=== PATIENT | female | born 1995 | race Caucasian/White ===

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

== ENCOUNTER → 2017-05-25 | Outpatient (CLI) | payer BC ==
[2017-05-25 13:32] LABS: LYME DISEASE AB IGG NEG (NEG)
[2017-05-25 13:56] LABS: LYME DISEASE AB IGM POS (NEG)
[2017-05-28 08:41] LABS: 18KDIGG BAND NONREACTIVE (NONREACTIVE); 23KDIGG BAND NONREACTIVE (NONREACTIVE); 23KDIGM BAND REACTIVE (NONREACTIVE); 28KDIGG BAND NONREACTIVE (NONREACTIVE); 30KDIGG BAND NONREACTIVE (NONREACTIVE); 39KDIGG BAND NONREACTIVE (NONREACTIVE); 39KDIGM BAND NONREACTIVE (NONREACTIVE); 41KDIGG BAND NONREACTIVE (NONREACTIVE); 41KDIGM BAND NONREACTIVE (NONREACTIVE); 45KDIGG BAND NONREACTIVE (NONREACTIVE); 58KDIGG BAND NONREACTIVE (NONREACTIVE); 66KDIGG BAND NONREACTIVE (NONREACTIVE); 93KDIGG BAND NONREACTIVE (NONREACTIVE)
== END ==
LOC: C.LAB 10:44
PROVIDERS: ATTEND Nurse Practitioner Adult Health
DX: R25.1 Tremor, unspecified (principal)

== ENCOUNTER → 2017-06-04 | Outpatient (CLI) | payer BC ==
[2017-06-04 11:18] LABS: HEMATOCRIT 38.5 % (37-47)
[2017-06-04 11:57] LABS: ALKALINE PHOSPHATASE 70 U/L (45-117); ALT/SGPT 13 U/L (12-78); BLOOD UREA NITROGEN 11 mg/dl (7-18); BUN/CREATININE RATIO 14.8 (10-20); CALCIUM 9.4 mg/dl (8.5-10.1); CARBON DIOXIDE 26 mmol/L (21-32); CHLORIDE 105 mmol/L (98-107); CREATININE 0.75 mg/dl (0.60-1.20); GLUCOSE 74 mg/dl (70-99); POTASSIUM 3.9 mmol/L (3.5-5.1); SODIUM 137 mmol/L (136-145)
[2017-06-04 11:59] LABS: ALB/GLOB RATIO 0.9 (0.9-2); AST/SGOT 14 U/L (15-37)
== END | disposition home or self-care (01) ==
LOC: C.LAB 10:31
PROVIDERS: ATTEND Family Medicine
DX: M62.89 Other specified disorders of muscle (principal); G47.00 Insomnia, unspecified; T14.8XXA Other injury of unspecified body region, initial encounter; W57.XXXA Bitten or stung by nonvenomous insect and other nonvenomous arthropods, initial encounter

== ENCOUNTER 2025-07-04 15:38 | Inpatient (IN) ==
[2025-07-04] MEDS ORDERED: OXYTOCIN 30 UNITS/NSS 30 UNITS/500 ML BAG IV PRN (16:40)
[2025-07-04] MEDS ORDERED: LIDOCAINE 1% LOCAL 20 ML VIAL INFIL PRN (16:40)
[2025-07-04] MEDS ORDERED: CALCIUM CARBONATE 500 MG CHEWABLE TAB PO PRN (16:40)
--- NOTE | 2025-07-04 16:50 | History & Physical Report ---
Date of Service July 04, 2025 Assessment & Plan (1) Decreased movement: Plan: 30-year-old at 39 weeks and 2 days of gestation presenting today with decreased movements, reactive NST normal MAISHA but BPP of 6 out of 10 in the office, missing movements and tone, Vital signs stable afebrile, Currently NST is reactive and scalp suggest increased acceleration but patient has not felt movement, Suspected macrosomia, ultrasound for EFW was over 90th percentile and office, discussed the risk of macrosomia, shoulder dystocia and ACOG recommendations for trial of vaginal versus primary , Plan to admit, monitor, labs, repeat ultrasound for BPP and EFW and then decide further plan for delivery, Continue monitor closely, All questions were answered. (2) with 39 completed weeks gestation: (3) Anxiety: (4) Depression: (5) LGA (large for gestational age) fetus affecting mother, antepartum: History of Present Illness Primary Care Provider: Sunshine Higgins DO patient is an 30-year-old G1, P0 at 35 weeks and 2 days of gestation who was sent from office due to decreased movements, reactive NST but low BPP 6 out of 10. Patient called office around noon time that baby has not know much maybe few times during the day. She went to office for NST and baby moved maybe 2 times during monitoring but none during ultrasound which was done for BPP. Patient states baby started to move a little bit since she left the office maybe 4 times for the last 2 hours or so. She denies contractions, leakage of fluid or vaginal bleeding. her has been complicated by, , 1. Rh-, Received RhoGAM at 28 weeks, 2. Depression anxiety during , on Abilify and lamotrigine, sees psychiatrist and has been stable. 3. LGA, EFW was 96 percentile at 34 weeks, repeat ultrasound last week with EFW: 3941 g +/- 583 g (8 lb 11 oz +/- 21 oz), corresponding to 94%. Allergies Allergy/AdvReac Type Severity Reaction Status Date / Time coconut Allergy Unknown ITCHING Verified 11/27/24 18:06 Home Medications Medication Instructions Recorded Confirmed Type aripiprazole 10 mg tablet (Abilify) 10 mg PO HS 07/04/25 07/04/25 History lamotrigine 100 mg tablet 100 mg PO DAILY 07/04/25 07/04/25 History (Lamictal) [id number] 1 mg 1 tab PO DAILY 07/04/25 07/04/25 History tablet Patient History Medical History Depression Anxiety Migraine headache Daytime hypersomnolence Acne Acid reflux disease Surgical History S/P wisdom tooth extraction Family History Denies family history of Ovarian cancer Prostate cancer Myocardial infarction Breast cancer Colorectal cancer Social History Smoking Status: Never smoker Do You Dip or Chew Tobacco: No; Hx Alcohol Use: Yes Alcohol type: hard liquor Hx Substance Use: No Preferred Language: Citizen Of The [place] Communication Ability: Effective Visual Impairment: No Limitations Hearing Ability: Normal marital status: Current Living Situation: Parent current occupational status: employed current occupation: [employer] Feels Safe at Home: Yes Safety Concerns: Feels Safe At This Time Childhood Exposure to Second-Hand Smoke: No Dental Care, Regularly: No Physical Activity Frequency: Does not Exercise Seatbelt Use: always Sunscreen Use: Yes 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 no history of STDs, no history of chlamydia, gonorrhea, herpes Physical Exam Constitutional: WD/WN, vitals as above well developed, well nourished and comfortable Gastrointestinal (Abdomen): normal bowel sounds, soft, nontender, no hepatosplenomegaly ( gravid, Lan 9 to 9.5 pounds) Genitourinary: normal external appearance OB Exam Abdomen: + vertex Manual OB Exam: + cervical dilation 1 cm, + cervical effacement 50% and + station -2 OB Exam Monitor Tracing: + external uterine monitor used and + category I NST is reactive, scalp stimulation caused acceleration, patient has not felt movements during that. Results & Data Vital Signs (Past 12 Hours) Vital Signs Temp Pulse Resp BP 07/04/25 15:54 37.0 C 16 07/04/25 15:48 117 H 137/92 (1) Decreased movement Fetus number: single or unspecified fetus Trimester: third trimester Qualified Code(s): O36.8130 - Decreased movements, third trimester, not applicable or unspecified (4) Depression Depression Type: other depression Qualified Code(s): F32.89 - Other specified depressive episodes (5) LGA (large for gestational age) fetus affecting mother, antepartum Fetus number: single or unspecified fetus Qualified Code(s): O36.60X0 - Maternal care for excessive growth, unspecified trimester, not applicable or unspecified
[2025-07-04 18:00] LABS: Protein Creatinine Ratio Urine 0.4 (0-0.2); Total Protein Urine Random 62.6 mg/dl (0-11.9)
--- NOTE | 2025-07-04 18:00 | Ultrasound Report ---
Technique: Transabdominal pelvic sonography was performed Findings: A single live intrauterine gestation is seen in cephalic presentation. The placenta is anterior. There is no sign of placenta previa or placental abruption. Amniotic fluid is within normal limits with an MAISHA of 6.6. The heart rate was 171 bpm The biophysical profile score is normal at 8 out of 8. Impression: Intrauterine with a normal biophysical profile score Electronically signed by Hipolito Sanchez 07-04-2025 5:59 PM
--- NOTE | 2025-07-04 18:30 | Ultrasound Report ---
INDICATION: Gross COMPARISON: None TECHNIQUE: Limited Ob ultrasound was performed. FINDINGS: Single viable intrauterine . Estimated gestational age is 39 weeks and 2 days. Cephalic presentation. heart rate 142 bpm. EFW 8 pounds 13 ounces +/- 1 pound 5 ounces. Please refer to the worksheet for additional measurements. IMPRESSION: Single viable intrauterine with estimated gestational age of 39 weeks and 2 days. Electronically signed by Margo Anne 07-04-2025 6:29 PM
[2025-07-04] MEDS: DINOPROSTONE 10 MG INSERT PV ONE (18:37)
[2025-07-04] MEDS ORDERED: BUTORPHANOL TARTRATE 1 MG/ML VIAL IV PRN (18:46)
--- NOTE | 2025-07-04 18:46 | Obstetrical Progress Note ---
Date of Service July 04, 2025 Assessment & Plan Admission and Anticipated Discharge Date Admission Date: July 04, 2025 Subjective Patient is back from ultrasound. She has been feeling the movements. BPP is 8 out of 8 making it 10 out of 10 with a reactive NST here. Ultrasound showed single IUP vertex presentation, MAISHA within normal limits, EFW is 3996 g which is 8 pound 13 ounces. Discussed the findings and a cog recommendations of trial of labor if EFW ultrasound is less than 5000 g without diabetes and less than 4500 g with gestational diabetes. Patient understands all and desires to have a trial of labor. Discussed induction of labor, Ripening of cervix with prostaglandin, pain management during labor and what to expect. patient plans to get epidural later. Patient understands all. Cervidil is placed in vagina without difficulty. Continue to monitor closely. Results & Data Vital Signs (Past 12 Hours) Vital Signs Temp Pulse Resp BP 07/04/25 18:38 96 H 135/83 07/04/25 15:54 37.0 C 16 07/04/25 15:48 117 H 137/92
[2025-07-04 19:03] LABS: Hematocrit (blood only) 33.3 % (37.0-47.0); Hemoglobin 12.0 g/dL (12.0-16.0); Mean Corpuscular Hemoglobin 31.7 pg (25.0-34.0); Mean Corpuscular Volume 88.1 fL (80.0-100.0); Platelet Count 166 K/uL (130-400); RDW Standard Deviation 43.0 fL (36.4-46.3); Red Blood Count 3.78 M/uL (4.20-5.40); White Blood Count 9.84 K/ul (4.8-10.8)
[2025-07-04 19:21] LABS: Alanine Aminotransferase 8.0 U/L (7-52); Albumin Globulin Ratio 1.1 (0.9-2); Albumin Level 3.3 gm/dl (3.4-5.0); Alkaline Phosphatase 161.0 U/L (34-104); Anion Gap 9.0 (3-11); Bilirubin,Total 0.3 mg/dl (0.2-1.0); Blood Urea Nitrogen 14.0 mg/dl (6-23); Calcium 9.0 mg/dl (8.6-10.3); Carbon Dioxide 19.0 mmol/L (21-32); Chloride 108.0 mmol/L (98-107); Creatinine Clr Calc Pharmacy 146.3 ml/min; Globulin 3.1 gm/dl (2.5-4.0); Glucose 98.0 mg/dl (70-99(Fasting)); Potassium 4.2 mmol/L (3.5-5.1); Sodium 136.0 mmol/L (136-145); Total Protein 6.4 gm/dl (6.0-8.3)
[2025-07-05] MEDS: lamoTRIgine 100 MG TAB PO SCH (08:30)
[2025-07-05] MEDS: PRENATAL VITAMIN 1 TAB PO SCH (08:30)
[2025-07-05] MEDS: LACTATED RINGER'S 1,000 ML IV PRN (09:46)
--- NOTE | 2025-07-05 09:54 | Labor Progress Brief Note ---
Date of Service July 05, 2025 Assessment & Plan Admission and Anticipated Discharge Date Admission Date: July 04, 2025 Physical Exam Genitourinary: Manual OB Exam: + cervical dilation 2 cm, + cervical effacement 80% and + station high OB Exam Monitor Tracing: + external FHT monitor used, + external uterine monitor used, + category I and + normal FHT variability Cervix soft/anterior. Will start Oxytocin to augment contractions. EFW 9 lbs. Results & Data Vital Signs (Past 12 Hours) Vital Signs Temp Pulse Resp BP 07/05/25 07:08 16 07/05/25 07:08 36.7 C 16 07/05/25 07:05 91 H 123/66 07/05/25 02:22 36.8 C 87 16 120/57 L 07/05/25 00:02 36.7 C 89 18 129/71
[2025-07-05] MEDS: OXYTOCIN 30 UNITS/NSS 30 UNITS/500 ML BAG IV PRN (10:13)
[2025-07-05] MEDS ORDERED: NALBUPHINE HCL INJ 10 MG/ML AMP IV PRN ×2 (11:38→20:11)
[2025-07-05] MEDS ORDERED: ROPIVACAINE 0.5% PF 5 MG/ML 20 ML VIAL EPI PRN (11:38)
[2025-07-05] MEDS ORDERED: BUPIVACAINE 0.25% PF 30 ML VIAL EPI PRN (11:38)
[2025-07-05] MEDS ORDERED: fentANYL 2 MCG/ML BUPIVacaine 0.125%-NSS 100ML BAG EPI PRN (11:38)
[2025-07-05] MEDS ORDERED: LIDOCAINE 2% MPF LOCAL 5 ML VIAL EPI PRN (11:38)
[2025-07-05] MEDS ORDERED: NALOXONE HCL 1 MG in SODIUM CHLORIDE 0.9% 1,000 ML IV PRN ×2 (11:38→20:11)
[2025-07-05] MEDS ORDERED: SODIUM CHLORIDE 0.9% PF INJ 10 ML VIAL EPI PRN (11:38)
[2025-07-05] MEDS ORDERED: NALOXONE HCL 0.4 MG/1 ML VIAL/CARP IV PRN ×2 (11:38→20:11)
[2025-07-05] MEDS ORDERED: diphenhydrAMINE 50 MG/ML VIAL IV PRN ×2 (11:38→20:11)
[2025-07-05] MEDS ORDERED: ONDANSETRON INJ 2 MG/ML 2 ML VIAL IV PRN ×2 (11:38→20:11)
--- NOTE | 2025-07-05 11:38 | Anesthesiology Consultation ---
Date of Service July 05, 2025 Assessment & Plan (1) Encounter for pre-operative examination: Chart Review Chart Review: Patient NOT seen in Pre Admission Testing and Acceptable Risk for Labor Epidural Consults Requested none History Height/Weight Height: 5 ft 5 in Weight: 94.347 kg Allergies Allergy/AdvReac Type Severity Reaction Status Date / Time coconut Allergy Unknown ITCHING Verified 11/27/24 18:06 Medications Home Medications Medication Instructions Recorded Confirmed Last Taken aripiprazole 10 mg tablet (Abilify) 10 mg PO HS 07/04/25 07/04/25 1 Day Ago ~07/03/25 lamotrigine 100 mg tablet 100 mg PO DAILY 07/04/25 07/04/25 1 Day Ago (Lamictal) ~07/03/25 [id number]-[id number] 1 mg 1 tab PO DAILY 07/04/25 07/04/25 1 Day Ago tablet ~07/03/25 Active Medications Generic Name Dose Route Start Last Admin Trade Name Freq PRN Reason Stop Dose Admin Aripiprazole 10 mg 07/04/25 21:00 07/04/25 20:43 Aripiprazole 10 Mg Tab PO 08/03/25 20:59 10 mg HS HARIKA Administration Lactated Ringer's 1,000 mls @ 150 mls/hr 07/04/25 16:40 07/05/25 10:53 Lr IV 07/06/25 16:39 150 mls/hr .[id number] PRN Administration L&D Protocol Protocol Oxytocin 30 units in 500 mls @ 1 mls/hr 07/05/25 09:53 07/05/25 10:13 Pitocin 30 Units/Nss IV 07/07/25 09:52 0.06 units/hr .Q24H PRN 1 mls/hr Labor Induction/Augmentation Administration Protocol 0.06 UNITS/HR Lamotrigine 100 mg 07/05/25 09:00 07/05/25 08:30 Lamotrigine 100 Mg Tab PO 08/04/25 08:59 100 mg DAILY HARIKA Administration Protocol Prenat Multivit/Azure/Iron/Folic Ac 1 tab 07/05/25 09:00 07/05/25 08:30 Vitamin 1 Tab PO 08/04/25 08:59 1 tab DAILY HARIKA Administration Past Medical History Medical History Depression Anxiety Migraine headache Daytime hypersomnolence Acne Acid reflux disease Past Family History Family History Denies family history of Ovarian cancer Prostate cancer Myocardial infarction Breast cancer Colorectal cancer Past Surgical History Surgical History S/P wisdom tooth extraction Social History Smoking Status: Never smoker Do You Dip or Chew Tobacco: No Hx Alcohol Use: Yes Alcohol type: hard liquor Hx Substance Use: No Physical Exam Vital Signs Last Vital Signs Temp 98.1 F 07/05/25 07:08 Pulse 92 H 07/05/25 11:36 Resp 16 07/05/25 07:08 BP 138/83 07/05/25 11:30 Pulse Ox 100 07/05/25 11:36 Testing Laboratory Results 07/04/25 18:42 07/04/25 18:42 Blood Type O Negative 07/04/25 18:42 Antibody Screen NEGATIVE 07/04/25 18:42
[2025-07-05] MEDS: fentANYL 2 MCG/ML BUPIVacaine 0.125%-NSS 100ML BAG ONE (11:57)
[2025-07-05] MEDS: LIDOCAINE 2%/EPINEPHRINE 1:200,000 20 ML PF ONE (12:02)
[2025-07-05] MEDS: BUPIVACAINE 0.25% PF 30 ML VIAL ONE (12:03)
--- NOTE | 2025-07-05 13:44 | Labor Progress Brief Note ---
Date of Service July 05, 2025 Assessment & Plan Admission and Anticipated Discharge Date Admission Date: July 04, 2025 Physical Exam Genitourinary: Manual OB Exam: + cervical dilation 4 cm, + cervical effacement 80%, + station -2 and + amniotic fluid clear OB Exam Monitor Tracing: + external FHT monitor used, + external uterine monitor used, + category I and + normal FHT variability AROM with Amni-hook clear fluid. Results & Data Vital Signs (Past 12 Hours) Vital Signs Temp Pulse Resp BP Pulse Ox 07/05/25 13:36 88 100 07/05/25 13:31 96 H 90 07/05/25 13:29 89 113/73 07/05/25 13:26 81 99 07/05/25 13:24 85 123/78 07/05/25 13:21 88 98 07/05/25 13:18 82 128/84 07/05/25 13:16 88 99 07/05/25 13:13 90 128/80 07/05/25 13:11 87 99 07/05/25 13:08 85 127/81 07/05/25 13:06 90 98 07/05/25 13:04 97 H 131/83 07/05/25 13:01 92 H 98 07/05/25 13:00 93 H 121/81 07/05/25 12:56 89 99 07/05/25 12:55 90 130/81 07/05/25 12:51 90 99 07/05/25 12:48 89 125/83 07/05/25 12:46 84 98 07/05/25 12:44 86 128/82 07/05/25 12:41 83 99 07/05/25 12:39 95 H 123/83 07/05/25 12:36 91 H 98 07/05/25 12:34 96 H 07/05/25 12:34 91 H 124/81 94 07/05/25 12:31 93 H 99 07/05/25 12:30 16 07/05/25 12:30 16 07/05/25 12:29 91 H 128/77 07/05/25 12:26 92 H 100 07/05/25 12:24 100 H 157/93 H 93 07/05/25 12:21 95 H 99 07/05/25 12:19 86 122/79 07/05/25 12:16 98 H 99 07/05/25 12:15 16 07/05/25 12:15 16 07/05/25 12:13 94 H 126/82 07/05/25 12:11 86 123/79 99 07/05/25 12:09 93 H 122/71 07/05/25 12:07 96 H 119/70 07/05/25 12:06 96 H 99 07/05/25 12:05 95 H 114/68 07/05/25 12:02 85 124/64 07/05/25 12:01 93 H 97 07/05/25 12:00 16 07/05/25 12:00 36.9 C 16 07/05/25 11:56 87 100 07/05/25 11:51 84 100 07/05/25 11:46 94 H 100 07/05/25 11:42 90 93 07/05/25 11:41 96 H 100 07/05/25 11:36 92 H 100 07/05/25 11:31 88 100 07/05/25 11:30 90 138/83 07/05/25 11:26 90 100 07/05/25 10:30 90 141/89 H 07/05/25 07:08 16 07/05/25 07:08 36.7 C 16 07/05/25 07:05 91 H 123/66 07/05/25 02:22 36.8 C 87 16 120/57 L
[2025-07-05] MEDS: SODIUM CHLORIDE 0.9% PF INJ 10 ML VIAL ONE (14:15)
[2025-07-05] MEDS: BUPIVACAINE 0.25% PF 30 ML VIAL EPI STA (14:15)
[2025-07-05] MEDS: SODIUM CHLORIDE 0.9% PF INJ 10 ML VIAL EPI STA (14:16)
[2025-07-05] MEDS: LIDOCAINE 2%/EPINEPHRINE 1:200,000 20 ML PF EPI STA (14:16)
[2025-07-05] MEDS: ACETAMINOPHEN 500 MG TAB PO PRN (15:24)
--- NOTE | 2025-07-05 16:25 | Labor Progress Brief Note ---
Date of Service July 05, 2025 Subjective Reason For Note: Requested By RN called to put in calp lead and IUPC to better monitor FHT/ctx Assessment & Plan Admission and Anticipated Discharge Date Admission Date: July 04, 2025 Physical Exam Genitourinary: Manual OB Exam: + cervical dilation 4 cm, + cervical effacement 80%, + station -2 and + amniotic fluid clear OB Exam Monitor Tracing: + scalp electrode used, + intra-uterine pressure catheter used, + category I and + normal FHT variability scalp lead applied followed by insertion of IUPC without any complications Results & Data Vital Signs (Past 12 Hours) Vital Signs Temp Pulse Resp BP Pulse Ox O2 Del Method 07/05/25 16:21 93 H 100 07/05/25 16:19 102 H 87 L 07/05/25 16:16 95 H 100 07/05/25 16:12 90 91 07/05/25 16:10 84 100 07/05/25 16:06 93 H 100 07/05/25 16:04 87 113/66 07/05/25 16:02 92 H 92 07/05/25 16:01 91 H 98 07/05/25 16:00 16 07/05/25 16:00 16 07/05/25 15:56 94 H 100 07/05/25 15:54 108 H 94 07/05/25 15:51 103 H 100 07/05/25 15:49 100 H 115/71 07/05/25 15:46 98 H 100 07/05/25 15:41 98 H 100 07/05/25 15:36 100 H 99 07/05/25 15:34 99 H 114/75 07/05/25 15:31 102 H 100 07/05/25 15:30 18 07/05/25 15:30 18 07/05/25 15:26 108 H 91 07/05/25 15:25 105 H 81 L 07/05/25 15:21 93 H 100 07/05/25 15:19 96 H 133/71 07/05/25 15:16 91 H 98 07/05/25 15:14 92 H 91 07/05/25 15:10 78 100 07/05/25 15:06 81 100 07/05/25 15:04 74 138/94 07/05/25 15:01 84 100 07/05/25 14:59 Room Air 07/05/25 14:56 76 100 07/05/25 14:54 16 07/05/25 14:54 16 07/05/25 14:51 75 100 07/05/25 14:48 71 129/82 07/05/25 14:46 74 100 07/05/25 14:41 72 100 07/05/25 14:36 71 100 07/05/25 14:33 83 134/79 07/05/25 14:31 92 H 94 07/05/25 14:30 16 07/05/25 14:30 16 07/05/25 14:26 95 H 100 07/05/25 14:21 80 99 07/05/25 14:18 85 117/67 07/05/25 14:16 77 99 07/05/25 14:11 80 100 07/05/25 14:06 79 100 07/05/25 14:03 83 117/68 07/05/25 14:02 90 91 07/05/25 14:01 83 100 07/05/25 14:00 16 07/05/25 14:00 16 07/05/25 13:56 80 100 07/05/25 13:51 79 100 07/05/25 13:48 78 120/69 07/05/25 13:46 81 99 07/05/25 13:41 94 H 99 07/05/25 13:36 37.0 C 88 100 07/05/25 13:31 96 H 90 07/05/25 13:30 16 07/05/25 13:30 16 07/05/25 13:29 89 113/73 07/05/25 13:26 81 99 07/05/25 13:24 85 123/78 07/05/25 13:21 88 98 07/05/25 13:18 82 128/84 07/05/25 13:16 88 99 07/05/25 13:13 90 128/80 07/05/25 13:11 87 99 07/05/25 13:08 85 127/81 07/05/25 13:06 90 98 07/05/25 13:04 97 H 131/83 07/05/25 13:01 92 H 98 07/05/25 13:00 93 H 16 121/81 07/05/25 12:56 89 99 07/05/25 12:55 90 130/81 07/05/25 12:51 90 99 07/05/25 12:48 89 125/83 07/05/25 12:46 84 98 07/05/25 12:44 86 128/82 07/05/25 12:41 83 99 07/05/25 12:39 95 H 123/83 07/05/25 12:36 91 H 98 07/05/25 12:34 96 H 07/05/25 12:34 91 H 124/81 94 07/05/25 12:31 93 H 99 07/05/25 12:30 16 07/05/25 12:30 16 07/05/25 12:29 91 H 128/77 07/05/25 12:26 92 H 100 07/05/25 12:24 100 H 157/93 H 93 07/05/25 12:21 95 H 99 07/05/25 12:19 86 122/79 07/05/25 12:16 98 H 99 07/05/25 12:15 16 07/05/25 12:15 16 07/05/25 12:13 94 H 126/82 07/05/25 12:11 86 123/79 99 07/05/25 12:09 93 H 122/71 07/05/25 12:07 96 H 119/70 07/05/25 12:06 96 H 99 07/05/25 12:05 95 H 114/68 07/05/25 12:02 85 124/64 07/05/25 12:01 93 H 97 07/05/25 12:00 16 07/05/25 12:00 36.9 C 16 07/05/25 11:56 87 100 07/05/25 11:51 84 100 07/05/25 11:46 94 H 100 07/05/25 11:42 90 93 07/05/25 11:41 96 H 100 07/05/25 11:36 92 H 100 07/05/25 11:31 88 100 07/05/25 11:30 90 138/83 07/05/25 11:26 90 100 07/05/25 10:30 90 141/89 H 07/05/25 07:08 16 07/05/25 07:08 36.7 C 16 07/05/25 07:05 91 H 123/66
[2025-07-05] MEDS ORDERED: ONDANSETRON INJ 2 MG/ML 2 ML VIAL ONE (18:45)
--- NOTE | 2025-07-05 18:46 | History & Physical Bridge Note ---
Date of Service July 05, 2025 History & Physical Bridge Note I have examined the patient, reviewed the History & Physical and in the interval since the performance of the History & Physical I have noted the following changes of clinical significance: no changes noted
--- NOTE | 2025-07-05 18:51 | Labor Progress Brief Note ---
Date of Service July 05, 2025 Subjective Reason For Note: Routine Evaluation Assessment & Plan Admission and Anticipated Discharge Date Admission Date: July 04, 2025 Physical Exam Genitourinary: Manual OB Exam: + cervical dilation 4 cm, + cervical effacement 80%, + station -2 and + amniotic fluid meconium OB Exam Monitor Tracing: + scalp electrode used, + intra-uterine pressure catheter used, + category I and + normal FHT variability baby is wedged in pelvis and no change for over 5 hours. Macrosomia suspected with CPD and arrest of progress in labor Will proceed with primary . Consent signed. Discussion with patient and spouse regarding the risks and benefits detailed. Results & Data Vital Signs (Past 12 Hours) Vital Signs Temp Pulse Resp BP Pulse Ox O2 Del Method 07/05/25 18:43 94 H 90 07/05/25 18:41 101 H 99 07/05/25 18:36 86 99 07/05/25 18:34 89 138/91 07/05/25 18:31 94 H 100 07/05/25 18:26 75 99 07/05/25 18:21 79 99 07/05/25 18:18 75 133/86 07/05/25 18:15 76 99 07/05/25 18:11 77 98 07/05/25 18:09 90 93 07/05/25 18:06 84 100 07/05/25 18:04 82 134/88 07/05/25 18:01 87 99 07/05/25 18:00 16 07/05/25 18:00 16 07/05/25 17:56 86 98 07/05/25 17:51 86 100 07/05/25 17:48 84 138/75 07/05/25 17:46 87 100 07/05/25 17:41 88 100 07/05/25 17:40 86 143/73 H 07/05/25 17:36 84 100 07/05/25 17:35 90 144/100 H 07/05/25 17:31 36.9 C 84 100 07/05/25 17:26 86 100 07/05/25 17:21 76 100 07/05/25 17:19 81 139/88 07/05/25 17:16 79 100 07/05/25 17:11 76 100 07/05/25 17:06 76 100 07/05/25 17:04 82 126/80 07/05/25 17:01 79 100 07/05/25 17:00 16 07/05/25 17:00 16 07/05/25 16:56 76 100 07/05/25 16:51 74 100 07/05/25 16:49 75 133/81 07/05/25 16:46 82 100 07/05/25 16:41 83 100 07/05/25 16:36 75 100 07/05/25 16:34 79 131/79 07/05/25 16:33 81 91 07/05/25 16:31 77 100 07/05/25 16:26 97 H 96 07/05/25 16:21 93 H 100 07/05/25 16:19 102 H 87 L 07/05/25 16:16 95 H 100 07/05/25 16:12 90 91 07/05/25 16:10 84 100 07/05/25 16:06 93 H 100 07/05/25 16:04 87 113/66 07/05/25 16:02 92 H 92 07/05/25 16:01 91 H 98 07/05/25 16:00 16 07/05/25 16:00 16 07/05/25 15:56 94 H 100 07/05/25 15:54 108 H 94 07/05/25 15:51 103 H 100 07/05/25 15:49 100 H 115/71 07/05/25 15:46 98 H 100 07/05/25 15:41 98 H 100 07/05/25 15:36 100 H 99 07/05/25 15:34 99 H 114/75 07/05/25 15:31 36.8 C 102 H 100 07/05/25 15:30 18 07/05/25 15:30 18 07/05/25 15:26 108 H 91 07/05/25 15:25 105 H 81 L 07/05/25 15:21 93 H 100 07/05/25 15:19 96 H 133/71 07/05/25 15:16 91 H 98 07/05/25 15:14 92 H 91 07/05/25 15:10 78 100 07/05/25 15:06 81 100 07/05/25 15:04 74 138/94 07/05/25 15:01 84 100 07/05/25 14:59 Room Air 07/05/25 14:56 76 100 07/05/25 14:54 16 07/05/25 14:54 16 07/05/25 14:51 75 100 07/05/25 14:48 71 129/82 07/05/25 14:46 74 100 07/05/25 14:41 72 100 07/05/25 14:36 71 100 07/05/25 14:33 83 134/79 07/05/25 14:31 92 H 94 07/05/25 14:30 16 07/05/25 14:30 16 07/05/25 14:26 95 H 100 07/05/25 14:21 80 99 07/05/25 14:18 85 117/67 07/05/25 14:16 77 99 07/05/25 14:11 80 100 07/05/25 14:06 79 100 07/05/25 14:03 83 117/68 07/05/25 14:02 90 91 07/05/25 14:01 83 100 07/05/25 14:00 16 07/05/25 14:00 16 07/05/25 13:56 80 100 07/05/25 13:51 79 100 07/05/25 13:48 78 120/69 07/05/25 13:46 81 99 07/05/25 13:41 94 H 99 07/05/25 13:36 37.0 C 88 100 07/05/25 13:31 96 H 90 07/05/25 13:30 16 07/05/25 13:30 16 07/05/25 13:29 89 113/73 07/05/25 13:26 81 99 07/05/25 13:24 85 123/78 07/05/25 13:21 88 98 07/05/25 13:18 82 128/84 07/05/25 13:16 88 99 07/05/25 13:13 90 128/80 07/05/25 13:11 87 99 07/05/25 13:08 85 127/81 07/05/25 13:06 90 98 07/05/25 13:04 97 H 131/83 07/05/25 13:01 92 H 98 07/05/25 13:00 93 H 16 121/81 07/05/25 12:56 89 99 07/05/25 12:55 90 130/81 07/05/25 12:51 90 99 07/05/25 12:48 89 125/83 07/05/25 12:46 84 98 07/05/25 12:44 86 128/82 07/05/25 12:41 83 99 07/05/25 12:39 95 H 123/83 07/05/25 12:36 91 H 98 07/05/25 12:34 96 H 07/05/25 12:34 91 H 124/81 94 07/05/25 12:31 93 H 99 07/05/25 12:30 16 07/05/25 12:30 16 07/05/25 12:29 91 H 128/77 07/05/25 12:26 92 H 100 07/05/25 12:24 100 H 157/93 H 93 07/05/25 12:21 95 H 99 07/05/25 12:19 86 122/79 07/05/25 12:16 98 H 99 07/05/25 12:15 16 07/05/25 12:15 16 07/05/25 12:13 94 H 126/82 07/05/25 12:11 86 123/79 99 07/05/25 12:09 93 H 122/71 07/05/25 12:07 96 H 119/70 07/05/25 12:06 96 H 99 07/05/25 12:05 95 H 114/68 07/05/25 12:02 85 124/64 07/05/25 12:01 93 H 97 07/05/25 12:00 16 07/05/25 12:00 36.9 C 16 07/05/25 11:56 87 100 07/05/25 11:51 84 100 07/05/25 11:46 94 H 100 07/05/25 11:42 90 93 07/05/25 11:41 96 H 100 07/05/25 11:36 92 H 100 07/05/25 11:31 88 100 07/05/25 11:30 90 138/83 07/05/25 11:26 90 100 07/05/25 10:30 90 141/89 H 07/05/25 07:08 16 07/05/25 07:08 36.7 C 16 07/05/25 07:05 91 H 123/66
[2025-07-05] MEDS ORDERED: DEXAMETHASONE SOD INJ 4 MG/ML VIAL ONE (18:53)
[2025-07-05] MEDS ORDERED: OXYTOCIN 10 UNITS/ML VIAL ONE (18:53)
[2025-07-05] MEDS ORDERED: PHENYLEPHRINE HCL 25 MG/250 ML NSS IV ONE (18:54)
[2025-07-05] MEDS ORDERED: SODIUM BICARB 8.4% INJ 50 MEQ/50 ML SYR IV ONE (18:54)
[2025-07-05] MEDS ORDERED: LIDOCAINE 2%/EPINEPHRINE 1:200,000 20 ML PF ONE (18:54)
[2025-07-05] MEDS ORDERED: MoRPHine SULFATE PF 1 MG/ML 10 ML AMP/VIAL ONE (18:54)
[2025-07-05] MEDS: CITRIC ACID/SODIUM CITRATE 15 ML UDC PO SCH (19:27)
[2025-07-05] MEDS: AZITHROMYCIN 500 MG/255 ML BAG IV SCH (19:30)
[2025-07-05] MEDS ORDERED: PHENYLEPHRINE 100MCG/ML 5ML SYR ONE (19:43)
[2025-07-05] MEDS ORDERED: PROMETHAZINE HCL INJ 25 MG/ML 1 ML VIAL ONE (19:47)
[2025-07-05] MEDS ORDERED: SODIUM CHLORIDE 0.9% PF INJ 10 ML VIAL ONE (19:55)
[2025-07-05] MEDS ORDERED: METHYLERGONOVINE MALEATE 0.2 MG/ML AMP ONE (20:05)
[2025-07-05] MEDS ORDERED: LACTATED RINGER'S 500 ML IV PRN (20:11)
[2025-07-05] MEDS ORDERED: HYDROmorphone INJ 0.5 MG/0.5 ML SYR IV PRN (20:11)
[2025-07-05] MEDS ORDERED: NALOXONE HCL 0.08 MG in SYRINGE 1.8 ML IV PRN (20:11)
[2025-07-05] MEDS ORDERED: PROMETHAZINE 6.25 MG/50.25 ML BAG IV PRN (20:11)
[2025-07-05] MEDS ORDERED: NO NARCOTICS OR SEDATIVES SCH (20:15)
[2025-07-05] MEDS ORDERED: DC INTRASPINAL MORPHINE SCH (20:15)
[2025-07-05] MEDS ORDERED: SENNA 8.6 MG TAB PO PRN (20:50)
[2025-07-05] MEDS ORDERED: HYDROCORTISONE ACETATE 25 MG SUPP PR PRN (20:50)
[2025-07-05] MEDS ORDERED: MAGNESIUM HYDROXIDE SUSP 30 ML UDC PO PRN (20:50)
[2025-07-05] MEDS ORDERED: BENZOCAINE 20% SPRY 85 APPLN/85 GM CAN EXT PRN (20:50)
[2025-07-05] MEDS ORDERED: CALCIUM CARBONATE 500 MG CHEWABLE TAB PO PRN (20:50)
--- NOTE | 2025-07-05 20:52 | Anesthesia Procedure Note ---
Date of Service July 05, 2025 Anesthesia Post Epidural Note Vital Signs Vital Signs: Temp Pulse Resp BP Pulse Ox O2 Del Method 98.4 F 87 16 111/61 98 Room Air 07/05/25 17:31 07/05/25 20:48 07/05/25 18:00 07/05/25 20:46 07/05/25 20:48 07/05/25 14:59 Notes Mental Status: alert / awake / arousable and participated in evaluation Nausea / Vomiting: adequately controlled Pain: adequately controlled Airway Patency, RR, SpO2: stable & adequate BP & HR: stable & adequate Hydration State: stable & adequate Neuraxial Anesthesia: was administered and sensory block is resolving Anesthetic Complications: no major complications apparent and Pt Satisfied with anesthetic care Epidural: Removed without complications and With tip intact
--- NOTE | 2025-07-05 20:54 | Post Operative Brief Note ---
Immediate Post Op Note Date of Surgery July 05, 2025 Pre & Post Diagnosis Operation Date: 07/05/25 19:30 Pre-Op Diagnosis: Primary Section for Failure to Progress, CPD and Macrosomia Post-Op Diagnosis: Same I identified the patient and participated in the time-out.: Yes Procedure Operation Date: 07/05/25 19:30 Actual Procedures p Section in LD for LFC at 1957(Bilateral) - Vitaly Denis MD Surgeon Vitaly Denis MD [employer] [address] [place] Estimated Blood Loss 718 Findings Consistent with Post-Op Diagnosis live female OT with Apgars 9/9 weight 8-14 Fluids LR Specimens placenta Drains [place] Catheter Anesthesia Type Labor Epidural Complications none Disposition Accompanied Patient To Recovery: Yes Overlapping Procedure I was present for: the critical portions of procedure. I was immediately available: during the entire case. Back up surgeon: used during listed procedure.
--- NOTE | 2025-07-05 20:56 | Anesthesiology Progress Note ---
Date of Service July 05, 2025 Anesthesia Post Procedure Vital Signs Vital Signs: Temp Pulse Resp BP Pulse Ox O2 Del Method 07/05/25 20:54 77 94 07/05/25 20:53 77 94 07/05/25 20:48 87 98 07/05/25 20:46 96 H 111/61 07/05/25 20:43 76 97 07/05/25 19:25 90 97 07/05/25 19:21 89 98 07/05/25 19:19 94 H 134/84 07/05/25 19:15 93 H 97 07/05/25 19:11 95 H 97 07/05/25 19:06 100 H 96 07/05/25 19:03 96 H 131/89 07/05/25 19:01 100 H 99 07/05/25 18:56 96 H 98 07/05/25 18:51 100 H 98 07/05/25 18:48 93 H 137/91 07/05/25 18:46 94 H 100 07/05/25 18:43 94 H 90 07/05/25 18:41 101 H 99 07/05/25 18:36 86 99 07/05/25 18:34 89 138/91 07/05/25 18:31 94 H 100 07/05/25 18:26 75 99 07/05/25 18:21 79 99 07/05/25 18:18 75 133/86 07/05/25 18:15 76 99 07/05/25 18:11 77 98 07/05/25 18:09 90 93 07/05/25 18:06 84 100 07/05/25 18:04 82 134/88 07/05/25 18:01 87 99 07/05/25 18:00 16 07/05/25 18:00 16 07/05/25 17:56 86 98 07/05/25 17:51 86 100 07/05/25 17:48 84 138/75 07/05/25 17:46 87 100 07/05/25 17:41 88 100 07/05/25 17:40 86 143/73 H 07/05/25 17:36 84 100 07/05/25 17:35 90 144/100 H 07/05/25 17:31 98.4 F 84 100 07/05/25 17:26 86 100 07/05/25 17:21 76 100 07/05/25 17:19 81 139/88 07/05/25 17:16 79 100 07/05/25 17:11 76 100 07/05/25 17:06 76 100 07/05/25 17:04 82 126/80 07/05/25 17:01 79 100 07/05/25 17:00 16 07/05/25 17:00 16 07/05/25 16:56 76 100 07/05/25 16:51 74 100 07/05/25 16:49 75 133/81 07/05/25 16:46 82 100 07/05/25 16:41 83 100 07/05/25 16:36 75 100 07/05/25 16:34 79 131/79 07/05/25 16:33 81 91 07/05/25 16:31 77 100 07/05/25 16:26 97 H 96 07/05/25 16:21 93 H 100 07/05/25 16:19 102 H 87 L 07/05/25 16:16 95 H 100 07/05/25 16:12 90 91 07/05/25 16:10 84 100 07/05/25 16:06 93 H 100 07/05/25 16:04 87 113/66 07/05/25 16:02 92 H 92 07/05/25 16:01 91 H 98 07/05/25 16:00 16 07/05/25 16:00 16 07/05/25 15:56 94 H 100 07/05/25 15:54 108 H 94 07/05/25 15:51 103 H 100 07/05/25 15:49 100 H 115/71 07/05/25 15:46 98 H 100 07/05/25 15:41 98 H 100 07/05/25 15:36 100 H 99 07/05/25 15:34 99 H 114/75 07/05/25 15:31 98.2 F 102 H 100 07/05/25 15:30 18 07/05/25 15:30 18 07/05/25 15:26 108 H 91 07/05/25 15:25 105 H 81 L 07/05/25 15:21 93 H 100 07/05/25 15:19 96 H 133/71 07/05/25 15:16 91 H 98 07/05/25 15:14 92 H 91 07/05/25 15:10 78 100 07/05/25 15:06 81 100 07/05/25 15:04 74 138/94 07/05/25 15:01 84 100 07/05/25 14:59 Room Air 07/05/25 14:56 76 100 07/05/25 14:54 16 07/05/25 14:54 16 07/05/25 14:51 75 100 07/05/25 14:48 71 129/82 07/05/25 14:46 74 100 07/05/25 14:41 72 100 07/05/25 14:36 71 100 07/05/25 14:33 83 134/79 07/05/25 14:31 92 H 94 07/05/25 14:30 16 07/05/25 14:30 16 07/05/25 14:26 95 H 100 07/05/25 14:21 80 99 07/05/25 14:18 85 117/67 07/05/25 14:16 77 99 07/05/25 14:11 80 100 07/05/25 14:06 79 100 07/05/25 14:03 83 117/68 07/05/25 14:02 90 91 07/05/25 14:01 83 100 07/05/25 14:00 16 07/05/25 14:00 16 07/05/25 13:56 80 100 07/05/25 13:51 79 100 07/05/25 13:48 78 120/69 07/05/25 13:46 81 99 07/05/25 13:41 94 H 99 07/05/25 13:36 98.6 F 88 100 07/05/25 13:31 96 H 90 07/05/25 13:30 16 07/05/25 13:30 16 07/05/25 13:29 89 113/73 07/05/25 13:26 81 99 07/05/25 13:24 85 123/78 07/05/25 13:21 88 98 07/05/25 13:18 82 128/84 07/05/25 13:16 88 99 07/05/25 13:13 90 128/80 07/05/25 13:11 87 99 07/05/25 13:08 85 127/81 07/05/25 13:06 90 98 07/05/25 13:04 97 H 131/83 07/05/25 13:01 92 H 98 07/05/25 13:00 93 H 16 121/81 07/05/25 12:56 89 99 07/05/25 12:55 90 130/81 07/05/25 12:51 90 99 07/05/25 12:48 89 125/83 07/05/25 12:46 84 98 07/05/25 12:44 86 128/82 07/05/25 12:41 83 99 07/05/25 12:39 95 H 123/83 07/05/25 12:36 91 H 98 07/05/25 12:34 96 H 07/05/25 12:34 91 H 124/81 94 07/05/25 12:31 93 H 99 07/05/25 12:30 16 07/05/25 12:30 16 07/05/25 12:29 91 H 128/77 07/05/25 12:26 92 H 100 07/05/25 12:24 100 H 157/93 H 93 07/05/25 12:21 95 H 99 07/05/25 12:19 86 122/79 07/05/25 12:16 98 H 99 07/05/25 12:15 16 07/05/25 12:15 16 07/05/25 12:13 94 H 126/82 07/05/25 12:11 86 123/79 99 07/05/25 12:09 93 H 122/71 07/05/25 12:07 96 H 119/70 07/05/25 12:06 96 H 99 07/05/25 12:05 95 H 114/68 07/05/25 12:02 85 124/64 07/05/25 12:01 93 H 97 07/05/25 12:00 16 07/05/25 12:00 98.4 F 16 07/05/25 11:56 87 100 07/05/25 11:51 84 100 07/05/25 11:46 94 H 100 07/05/25 11:42 90 93 07/05/25 11:41 96 H 100 07/05/25 11:36 92 H 100 07/05/25 11:31 88 100 07/05/25 11:30 90 138/83 07/05/25 11:26 90 100 07/05/25 10:30 90 141/89 H 07/05/25 07:08 16 07/05/25 07:08 98.1 F 16 07/05/25 07:05 91 H 123/66 07/05/25 02:22 98.2 F 87 16 120/57 L 07/05/25 00:02 98.1 F 89 18 129/71 Transfer of Care Handoff Completed per policy Notes Mental Status: alert / awake / arousable and participated in evaluation Patient Amnestic to Procedure: No Nausea / Vomiting: improving with treatment Pain: adequately controlled Airway Patency, RR, SpO2: stable & adequate BP & HR: stable & adequate Hydration State: stable & adequate Neuraxial Anesthesia: was administered and sensory block is resolving Anesthetic Complications: no major complications apparent and Pt Satisfied with anesthetic care
--- NOTE | 2025-07-05 21:00 | Operative Report ---
Post Operative Report Pre & Post Diagnosis Operation Date: 07/05/25 19:30 Pre-Op Diagnosis: Primary Section for Failure to Progress, CPD and Macrosomia Post-Op Diagnosis: Same I identified the patient and participated in the time-out.: Yes Procedure Operation Date: 07/05/25 19:30 Actual Procedures p Section in for [facility] at 195(Bilateral) - Vitaly Denis MD Surgeon Vitaly Denis MD [employer] Dr. Mills Quantitative Blood Loss (QBL) 718 ml. Findings Consistent with Post-Op Diagnosis White female occiput transverse Apgars 9 and 9 weight 8 pounds 14 ounces Fluids LR Specimens Placenta Drains None Anesthesia Type Labor Epidural Complications None Disposition Accompanied Patient To Recovery: Yes Indications Aggressive progress in labor CPD suspected macrosomia Description of Procedure Under satisfactory epidural anesthesia the patient was prepped draped usual sterile fashion a timeout was called prior to the start of the procedure antibiotics were given preop. Low Pfannenstiel incision was used carrying the incision down through the layers of the abdomen in successive layers without difficulty upon entering into the abdominal cavity the peritoneum was opened in the AP diameter bladder blade was entered the bladder flap was made with sharp dissection using Metzenbaum scissors low segment transverse incision over the lower uterine segment was made. Incision was nicked the baby was found to be in the occiput transverse position was delivered with the aid of fundal pressure of a live female with Apgars of 9 and 9 weight was 8 pounds 14 ounces. Delayed cord clamping was accomplished Cord blood was then obtained placenta was then delivered spontaneously and intact submitted to pathology. The uterus was then exteriorized wet lap was used to hold the uterus in place dry lap was then used to clean all clots and debris from the uterus. Ring forceps were then placed on the inferior margin in both angles. There was some atony and 0.2 IM Methergine was given. The uterus was closed in a double layer closure starting with 0 Vicryl suture in a continuous interlocking fashion followed by a second retaining suture of 0 Vicryl suture. Tubes ovaries bilaterally were found to be within normal limits. The lower uterine segment was inspected the initial sponge needle instrument count were found to be correct. The uterus was placed back into the normal anatomical position. The muscle was reapproximated with several interrupted [id number] 0 Vicryl sutures the fascia was then reapproximated with 0 Vicryl suture in a continuous fashion. The subcuticular layer was then closed with 3-0 plain suture and the skin was then closed with 4- 0 Monocryl subcuticular stitch. Telfa and ABD dressing and Steri-Strips were used for the incision. The final sponge needle instrument count were found to be correct the QBL was 718 mL the patient was then placed supine on a stretcher and she was stable and taken to recovery room in satisfactory condition I attest to the content of the Intraoperative Record and any orders documented therein. Any exceptions are noted below. Please note that Dr. Mills was present for the surgical case he provided exposure retraction help with delivery of the head with fundal pressure closure of the uterus and closure of the abdomen
[2025-07-05] MEDS: ACETAMINOPHEN 500 MG TAB PO SCH (21:13)
[2025-07-05] MEDS: DIPHTHER/TETAN/PERTUS Vaccine (Tdap, Adol/Adult) 0.5mL IM ONE (21:14)
[2025-07-05] MEDS ORDERED: Nursing to Pharmacy Communication SCH (21:30)
[2025-07-05] MEDS: ACETAMINOPHEN 325 MG TAB PO SCH (21:35)
[2025-07-05] MEDS: KETOROLAC 30 MG/ML VIAL IV SCH (21:36)
[2025-07-05] MEDS: OXYTOCIN 20 UNITS/LR 1,002 ML IV SCH (22:26)
[2025-07-05] MEDS: DOCUSATE SODIUM 100 MG CAP PO SCH (22:42)
[2025-07-06] MEDS ORDERED: ACETAMINOPHEN 325 MG TAB PO SCH (03:00)
[2025-07-06] MEDS: SIMETHICONE 80 MG CHEW PO SCH (03:32)
[2025-07-06 07:56] LABS: Hematocrit (blood only) 27.4 % (37.0-47.0); Hemoglobin 9.8 g/dL (12.0-16.0); Immature Granulocytes # (auto) 0.06 K/uL (0.01-0.20); Immature Granulocytes % (auto) 0.4 %; Mean Corpuscular Hemoglobin 31.3 pg (25.0-34.0); Mean Corpuscular Volume 87.5 fL (80.0-100.0); Platelet Count 135 K/uL (130-400); RDW Standard Deviation 42.4 fL (36.4-46.3); Red Blood Count 3.13 M/uL (4.20-5.40); White Blood Count 15.34 K/ul (4.8-10.8)
[2025-07-06] MEDS: FERROUS SULFATE 325 MG TAB PO SCH (08:32)
[2025-07-06] MEDS: PRENATAL VITAMIN 1 TAB PO SCH (08:32)
--- NOTE | 2025-07-06 08:56 | Obstetrical Progress Note ---
Date of Service July 06, 2025 Assessment & Plan Admission and Anticipated Discharge Date Admission Date: July 04, 2025 Subjective Patient is seen and examined. She feels well, no complaints. Pain is under control with oral meds. Has not Voided yet Tolerating regular diet with out N&V Flatus Neg Bleeding is minimal No fever/ chills/ CP/ SOB/ N&V/ Leg pain Breast feeding without problems Vital Signs Height Weight Body Mass Index Blood Pressure Blood Pressure Position Temperature Temperature Source 5 ft 5 in 94.347 kg 34.6 114/74 Semi-fowlers 36.9 C Oral 07/05/25 12:44 07/05/25 12:44 07/04/25 15:54 07/06/25 03:24 07/06/25 03:24 07/06/25 03:24 07/06/25 03:24 Pulse Rate Respiratory Rate Pulse Oximetry 96 H 16 96 07/06/25 03:24 07/06/25 06:52 07/06/25 06:52 Lab Results 07/04/25 07/04/25 07/06/25 Range/Units 18:42 Unknown 07:24 WBC 9.84 15.34 H (4.8-10.8) K/ul RBC 3.78 L 3.13 L (4.20-5.40) M/uL Hgb 12.0 9.8 L (12.0-16.0) g/dL Hct 33.3 L 27.4 L (37.0-47.0) % MCV 88.1 87.5 (80.0-100.0) fL MCH 31.7 31.3 (25.0-34.0) pg MCHC 36.0 35.8 (32.0-36.0) g/dL RDW Std Deviation 43.0 42.4 (36.4-46.3) fL RDW Coeff of Harley 13.4 13.4 (11.5-14.5) % Plt Count 166 135 (130-400) K/uL MPV 11.6 11.1 (9.4-12.4) fL Immature Gran % (Auto) 0.4 % Neut % (Auto) 80.9 % Lymph % (Auto) 13.0 % [place] % (Auto) 5.6 % Eos % (Auto) 0.0 % Baso % (Auto) 0.1 % Neut # (Auto) 12.40 H (1.40-6.50) K/uL Lymph # (Auto) 2.00 (1.20-3.40) K/uL [place] # (Auto) 0.86 H (0.11-0.59) K/uL Eos # (Auto) 0.00 (0.00-0.50) K/uL Baso # (Auto) 0.02 (0.00-0.20) K/uL Immature Gran # (Auto) 0.06 (0.01-0.20) K/uL Sodium 136 (136-145) mmol/L Potassium 4.2 (3.5-5.1) mmol/L Chloride 108 H (98-107) mmol/L Carbon Dioxide 19 L (21-32) mmol/L Anion Gap 9 (3-11) BUN 14 (6-23) mg/dl Creatinine 0.65 (0.6-1.2) mg/dl Est Cr Clr Drug Dosing 146.3 ml/min eGFR 122.91 BUN/Creatinine Ratio 21.5 H (10-20) Glucose 98 (70-99(Fasting)) mg/dl Calcium 9.0 (8.6-10.3) mg/dl Total Bilirubin 0.3 (0.2-1.0) mg/dl AST 19 (13-39) U/L ALT 8 (7-52) U/L Alkaline Phosphatase 161 H (34-104) U/L Total Protein 6.4 (6.0-8.3) gm/dl Albumin 3.3 L (3.4-5.0) gm/dl Globulin 3.1 (2.5-4.0) gm/dl Albumin/Globulin Ratio 1.1 (0.9-2) Ur Random Creatinine 177.6 mg/dl U Random Total Protein 62.6 H (0-11.9) mg/dl Protein/Creatinin Ratio 0.4 H (0-0.2) Treponema pallidum Ab Negative (Negative) Blood Type O Negative Antibody Screen NEGATIVE PE: General: Alert, orientedx3, NAD CVS: S1S2 RRR Lungs; CTAB Abd: soft, NT, ND, BS+, fundus firm, below Umbilicus Incision/ Dressing: Clean, dry, intact Perineum intact, Lochia rubra minimal Ext; NT, no edema AP: 30 yo s/p C Section, pod# 1 VSS Afebrile doing well Continue routine postop care Encourage ambulation, PO intake All questions were answered Results & Data Vital Signs (Past 12 Hours) Vital Signs Temp Pulse Pulse Resp BP BP Pulse Ox 07/06/25 06:52 16 96 07/06/25 05:37 16 95 07/06/25 04:23 16 97 07/06/25 04:22 16 95 07/06/25 03:30 16 96 07/06/25 03:24 36.9 C 96 H 18 114/74 97 07/06/25 02:00 16 97 07/06/25 01:38 16 96 07/06/25 00:30 16 95 07/05/25 23:30 16 96 07/05/25 23:17 36.8 C 93 H 18 125/87 96 07/05/25 22:53 93 H 98 07/05/25 22:52 96 H 123/89 07/05/25 22:51 107 H 92 07/05/25 22:50 36.9 C 103 H 18 123/89 99 07/05/25 22:48 109 H 97 07/05/25 22:43 115 H 97 07/05/25 22:38 91 H 98 07/05/25 22:33 89 98 07/05/25 22:28 80 99 07/05/25 22:23 81 99 07/05/25 22:21 83 119/72 07/05/25 22:20 36.9 C 86 16 119/72 96 07/05/25 22:18 83 97 07/05/25 22:13 80 99 07/05/25 22:08 90 98 07/05/25 22:05 85 93 07/05/25 22:03 79 99 07/05/25 21:59 84 91 07/05/25 21:58 84 99 07/05/25 21:53 100 07/05/25 21:53 85 07/05/25 21:53 81 91 07/05/25 21:51 84 126/65 07/05/25 21:50 36.6 C 83 18 126/65 98 07/05/25 21:48 85 100 07/05/25 21:43 80 98 07/05/25 21:41 80 114/55 L 07/05/25 21:40 36.6 C 86 18 114/55 L 96 07/05/25 21:38 86 97 07/05/25 21:33 84 99 07/05/25 21:31 80 120/67 07/05/25 21:30 36.6 C 88 18 120/67 97 07/05/25 21:28 82 98 07/05/25 21:23 80 97 07/05/25 21:21 88 120/60 07/05/25 21:20 36.6 C 83 18 120/60 97 07/05/25 21:20 85 93 07/05/25 21:18 80 99 07/05/25 21:13 83 100 07/05/25 21:11 76 127/60 07/05/25 21:10 36.5 C 80 18 127/60 97 07/05/25 21:08 97 07/05/25 21:08 89 07/05/25 21:08 88 92 07/05/25 21:06 86 124/58 L 07/05/25 21:03 88 100 07/05/25 21:02 169 H 244/152 H 07/05/25 21:00 36.5 C 87 18 124/58 L 100 07/05/25 20:58 85 99 07/05/25 20:57 80 120/54 L O2 Del Method 07/06/25 06:52 07/06/25 05:37 07/06/25 04:23 07/06/25 04:22 07/06/25 03:30 07/06/25 03:24 Room Air 07/06/25 02:00 07/06/25 01:38 07/06/25 00:30 07/05/25 23:30 07/05/25 23:17 Room Air 07/05/25 22:53 07/05/25 22:52 07/05/25 22:51 07/05/25 22:50 07/05/25 22:48 07/05/25 22:43 07/05/25 22:38 07/05/25 22:33 07/05/25 22:28 07/05/25 22:23 07/05/25 22:21 07/05/25 22:20 07/05/25 22:18 07/05/25 22:13 07/05/25 22:08 07/05/25 22:05 07/05/25 22:03 07/05/25 21:59 07/05/25 21:58 07/05/25 21:53 07/05/25 21:53 07/05/25 21:53 07/05/25 21:51 07/05/25 21:50 07/05/25 21:48 07/05/25 21:43 07/05/25 21:41 07/05/25 21:40 07/05/25 21:38 07/05/25 21:33 07/05/25 21:31 07/05/25 21:30 07/05/25 21:28 07/05/25 21:23 07/05/25 21:21 07/05/25 21:20 07/05/25 21:20 07/05/25 21:18 07/05/25 21:13 07/05/25 21:11 07/05/25 21:10 07/05/25 21:08 07/05/25 21:08 07/05/25 21:08 07/05/25 21:06 07/05/25 21:03 07/05/25 21:02 07/05/25 21:00 07/05/25 20:58 07/05/25 20:57
[2025-07-06] MEDS: IRON SUCROSE 200 MG in SODIUM CHLORIDE 0.9% 100 ML IV ONE (10:17)
[2025-07-06] MEDS: SODIUM CHLORIDE 0.9% 1,000 ML IV SCH (10:23)
[2025-07-06] MEDS: MoRPHine SULFATE PF 1 MG/ML 10 ML AMP/VIAL INT SPINAL ONE (10:23)
[2025-07-06] MEDS: METHYLERGONOVINE MALEATE 0.2 MG/ML AMP IM STA (10:23)
[2025-07-06] MEDS: LACTATED RINGER'S 1,000 ML IV SCH ×3 (10:24)
[2025-07-06] MEDS ORDERED: Nursing to Pharmacy Communication SCH (11:15)
[2025-07-06] MEDS ORDERED: HYDROmorphone INJ 0.5 MG/0.5 ML SYR IV PRN (14:11)
[2025-07-06] MEDS ORDERED: diphenhydrAMINE 50 MG/ML VIAL IV PRN (14:11)
[2025-07-06] MEDS ORDERED: ONDANSETRON INJ 2 MG/ML 2 ML VIAL IV PRN (14:11)
[2025-07-06] MEDS ORDERED: diphenhydrAMINE Capsule 25 MG CAP PO PRN (14:11)
[2025-07-06] MEDS ORDERED: PROMETHAZINE 12.5 MG/50.5 ML BAG IV PRN (14:11)
[2025-07-06] MEDS ORDERED: KETOROLAC 30 MG/ML VIAL IV PRN (20:47)
[2025-07-06] MEDS: IBUPROFEN 600 MG TAB PO SCH (21:01)
[2025-07-07 07:27] LABS: Hematocrit (blood only) 26.3 % (37.0-47.0); Hemoglobin 9.3 g/dL (12.0-16.0)
--- NOTE | 2025-07-07 07:58 | Obstetrical Progress Note ---
Date of Service July 07, 2025 Assessment & Plan Admission and Anticipated Discharge Date Admission Date: July 04, 2025 Subjective Patient is seen and examined. She feels well, no complaints. Pain is under control with oral meds. Ambulating without dizziness Voiding without difficulty Tolerating regular diet with out N&V Flatus + Bleeding is minimal No fever/ chills/ CP/ SOB/ N&V/ Leg pain Breast feeding without problems Vital Signs Temp Pulse Pulse Resp BP BP Pulse Ox 07/06/25 23:05 36.9 C 90 16 122/83 96 07/06/25 20:00 36.5 C 109 H 16 119/74 97 07/06/25 13:30 18 96 07/06/25 12:55 36.8 C 111 H 18 111/76 07/06/25 12:30 18 96 07/06/25 11:30 18 96 07/06/25 10:30 18 94 07/06/25 09:30 18 96 07/06/25 09:30 36.8 C 117 H 18 139/81 07/06/25 09:30 36.8 C 117 H 18 139/81 07/06/25 08:30 16 94 O2 Del Method 07/06/25 23:05 Room Air 07/06/25 20:00 Room Air 07/06/25 13:30 07/06/25 12:55 Room Air 07/06/25 12:30 07/06/25 11:30 07/06/25 10:30 07/06/25 09:30 07/06/25 09:30 07/06/25 09:30 Room Air 07/06/25 08:30 Lab Results 07/04/25 07/04/25 07/06/25 Range/Units 18:42 Unknown 07:24 WBC 9.84 15.34 H (4.8-10.8) K/ul RBC 3.78 L 3.13 L (4.20-5.40) M/uL Hgb 12.0 9.8 L (12.0-16.0) g/dL Hct 33.3 L 27.4 L (37.0-47.0) % MCV 88.1 87.5 (80.0-100.0) fL MCH 31.7 31.3 (25.0-34.0) pg MCHC 36.0 35.8 (32.0-36.0) g/dL RDW Std Deviation 43.0 42.4 (36.4-46.3) fL RDW Coeff of Harley 13.4 13.4 (11.5-14.5) % Plt Count 166 135 (130-400) K/uL MPV 11.6 11.1 (9.4-12.4) fL Immature Gran % (Auto) 0.4 % Neut % (Auto) 80.9 % Lymph % (Auto) 13.0 % [place] % (Auto) 5.6 % Eos % (Auto) 0.0 % Baso % (Auto) 0.1 % Neut # (Auto) 12.40 H (1.40-6.50) K/uL Lymph # (Auto) 2.00 (1.20-3.40) K/uL [place] # (Auto) 0.86 H (0.11-0.59) K/uL Eos # (Auto) 0.00 (0.00-0.50) K/uL Baso # (Auto) 0.02 (0.00-0.20) K/uL Immature Gran # (Auto) 0.06 (0.01-0.20) K/uL Sodium 136 (136-145) mmol/L Potassium 4.2 (3.5-5.1) mmol/L Chloride 108 H (98-107) mmol/L Carbon Dioxide 19 L (21-32) mmol/L Anion Gap 9 (3-11) BUN 14 (6-23) mg/dl Creatinine 0.65 (0.6-1.2) mg/dl Est Cr Clr Drug Dosing 146.3 ml/min eGFR 122.91 BUN/Creatinine Ratio 21.5 H (10-20) Glucose 98 (70-99(Fasting)) mg/dl Calcium 9.0 (8.6-10.3) mg/dl Total Bilirubin 0.3 (0.2-1.0) mg/dl AST 19 (13-39) U/L ALT 8 (7-52) U/L Alkaline Phosphatase 161 H (34-104) U/L Total Protein 6.4 (6.0-8.3) gm/dl Albumin 3.3 L (3.4-5.0) gm/dl Globulin 3.1 (2.5-4.0) gm/dl Albumin/Globulin Ratio 1.1 (0.9-2) Ur Random Creatinine 177.6 mg/dl U Random Total Protein 62.6 H (0-11.9) mg/dl Protein/Creatinin Ratio 0.4 H (0-0.2) Treponema pallidum Ab Negative (Negative) Blood Type O Negative Antibody Screen NEGATIVE 07/07/25 Range/Units 06:58 WBC (4.8-10.8) K/ul RBC (4.20-5.40) M/uL Hgb 9.3 L (12.0-16.0) g/dL Hct 26.3 L (37.0-47.0) % MCV (80.0-100.0) fL MCH (25.0-34.0) pg MCHC (32.0-36.0) g/dL RDW Std Deviation (36.4-46.3) fL RDW Coeff of Harley (11.5-14.5) % Plt Count (130-400) K/uL MPV (9.4-12.4) fL Immature Gran % (Auto) % Neut % (Auto) % Lymph % (Auto) % [place] % (Auto) % Eos % (Auto) % Baso % (Auto) % Neut # (Auto) (1.40-6.50) K/uL Lymph # (Auto) (1.20-3.40) K/uL [place] # (Auto) (0.11-0.59) K/uL Eos # (Auto) (0.00-0.50) K/uL Baso # (Auto) (0.00-0.20) K/uL Immature Gran # (Auto) (0.01-0.20) K/uL Sodium (136-145) mmol/L Potassium (3.5-5.1) mmol/L Chloride (98-107) mmol/L Carbon Dioxide (21-32) mmol/L Anion Gap (3-11) BUN (6-23) mg/dl Creatinine (0.6-1.2) mg/dl Est Cr Clr Drug Dosing ml/min eGFR BUN/Creatinine Ratio (10-20) Glucose (70-99(Fasting)) mg/dl Calcium (8.6-10.3) mg/dl Total Bilirubin (0.2-1.0) mg/dl AST (13-39) U/L ALT (7-52) U/L Alkaline Phosphatase (34-104) U/L Total Protein (6.0-8.3) gm/dl Albumin (3.4-5.0) gm/dl Globulin (2.5-4.0) gm/dl Albumin/Globulin Ratio (0.9-2) Ur Random Creatinine mg/dl U Random Total Protein (0-11.9) mg/dl Protein/Creatinin Ratio (0-0.2) Treponema pallidum Ab (Negative) Blood Type Antibody Screen Cancelled PE: General: Alert, orientedx3, NAD CVS: S1S2 RRR Lungs; CTAB Abd: soft, NT, ND, BS+, fundus firm, below Umbilicus Incision: Clean, dry, intact Perineum intact, Lochia rubra minimal Ext; NT, no edema AP: 30 yo s/p C Section, pod# 2 VSS Afebrile doing well Continue routine postop care Encourage ambulation, PO intake All questions were answered D/C home tomorrow Results & Data Vital Signs (Past 12 Hours) Vital Signs Temp Pulse Resp BP Pulse Ox O2 Del Method 07/06/25 23:05 36.9 C 90 16 122/83 96 Room Air 07/06/25 20:00 36.5 C 109 H 16 119/74 97 Room Air
[2025-07-07] MEDS: ONDANSETRON 4 MG OD TAB PO PRN (21:15)
[2025-07-07] MEDS: IBUPROFEN 600 MG TAB PO PRN (21:15)
[2025-07-08] MEDS: ACETAMINOPHEN 325 MG TAB PO PRN (03:02)
[2025-07-08 08:28] VITALS: BP 136/86; RESP 16; TEMP 98.4; O2SAT 96
--- NOTE | 2025-07-08 08:45 | Obstetrical Progress Note ---
Date of Service July 08, 2025 Subjective Ambulation: ambulating normally Voiding: no voiding problems Passing Gas:: Yes Lochia:: Small Feeding Type:: breast feeding Current Pain Level(1-10): 0 Physical Exam Constitutional WD/WN, vitals as above Gastrointestinal (Abdomen) Inspection/Auscultation: abdomen normal to inspection incision c/d/i. abdomen soft and non-tender, fundus firm below U. Musculoskeletal Extremities: extremities normal to inspection Skin no rashes, warm and dry Neurologic patellar DTR's 2+ bilat, sensation intact Psychiatric A+Ox3, euthymic affect Results & Data Vital Signs (Past 12 Hours) Vital Signs Temp Pulse Resp BP Pulse Ox O2 Del Method 07/08/25 08:25 36.9 C 100 H 16 136/86 96 Room Air 07/07/25 23:02 36.5 C 89 18 127/86 100 Room Air Laboratory Results 07/04/25 07/04/25 07/06/25 18:42 Unknown 07:24 WBC 9.84 15.34 H RBC 3.78 L 3.13 L Hgb 12.0 9.8 L Hct 33.3 L 27.4 L MCV 88.1 87.5 MCH 31.7 31.3 MCHC 36.0 35.8 RDW Std Deviation 43.0 42.4 RDW Coeff of Harley 13.4 13.4 Plt Count 166 135 MPV 11.6 11.1 Immature Gran % (Auto) 0.4 Neut % (Auto) 80.9 Lymph % (Auto) 13.0 [place] % (Auto) 5.6 Eos % (Auto) 0.0 Baso % (Auto) 0.1 Neut # (Auto) 12.40 H Lymph # (Auto) 2.00 [place] # (Auto) 0.86 H Eos # (Auto) 0.00 Baso # (Auto) 0.02 Immature Gran # (Auto) 0.06 Sodium 136 Potassium 4.2 Chloride 108 H Carbon Dioxide 19 L Anion Gap 9 BUN 14 Creatinine 0.65 Est Cr Clr Drug Dosing 146.3 eGFR 122.91 BUN/Creatinine Ratio 21.5 H Glucose 98 Calcium 9.0 Total Bilirubin 0.3 AST 19 ALT 8 Alkaline Phosphatase 161 H Total Protein 6.4 Albumin 3.3 L Globulin 3.1 Albumin/Globulin Ratio 1.1 Ur Random Creatinine 177.6 U Random Total Protein 62.6 H Protein/Creatinin Ratio 0.4 H Treponema pallidum Ab Negative Blood Type O Negative Antibody Screen NEGATIVE Screen 07/07/25 06:58 WBC RBC Hgb 9.3 L Hct 26.3 L MCV MCH MCHC RDW Std Deviation RDW Coeff of Harley Plt Count MPV Immature Gran % (Auto) Neut % (Auto) Lymph % (Auto) [place] % (Auto) Eos % (Auto) Baso % (Auto) Neut # (Auto) Lymph # (Auto) [place] # (Auto) Eos # (Auto) Baso # (Auto) Immature Gran # (Auto) Sodium Potassium Chloride Carbon Dioxide Anion Gap BUN Creatinine Est Cr Clr Drug Dosing eGFR BUN/Creatinine Ratio Glucose Calcium Total Bilirubin AST ALT Alkaline Phosphatase Total Protein Albumin Globulin Albumin/Globulin Ratio Ur Random Creatinine U Random Total Protein Protein/Creatinin Ratio Treponema pallidum Ab Blood Type O Negative Antibody Screen Cancelled Screen Negative
[2025-07-08 09:52] VITALS: PULSE 96
== END 2025-07-08 12:37 | disposition home health service (06) | DRG 788 ==
LOC: OPB 15:38 → 4S1 15:44 → 4E2 07-05 23:05